=== PATIENT | female | born 1995 ===

== ENCOUNTER 2016-05-07 20:43 | Outpatient (CLI) | payer OTHER ==
[~2016-05-07] VITALS: Ht 152.4 cm; Wt 72.7 kg
[2016-05-07] MEDS ORDERED: PRENATAL MVI (21:23)
[2016-05-07 21:25] VITALS: BP 122/71; PULSE 101; TEMP 98.1
== END 2016-05-07 22:07 | disposition home or self-care (01) ==
LOC: LDRO 20:43
DX: O21.0 Mild hyperemesis gravidarum (principal); O26.893 Other specified pregnancy related conditions, third trimester; R19.7 Diarrhea, unspecified; Z3A.39 39 weeks gestation of pregnancy

== ENCOUNTER 2016-05-19 22:01 | Outpatient (CLI) | payer OTHER ==
[~2016-05-19] VITALS: Ht 152.4 cm; Wt 76.4 kg
[~2016-05-19 22:01] MED LIST: PRENATAL MVI
[2016-05-19 22:25] VITALS: BP 135/90; PULSE 99; TEMP 97.9
[2016-05-19 22:30] VITALS: BP 129/76; PULSE 95
[2016-05-19 22:45] VITALS: BP 127/81; PULSE 91
[2016-05-19 23:00] VITALS: BP 128/76; PULSE 93
[2016-05-19 23:15] VITALS: BP 130/69; PULSE 94
[2016-05-20] MEDS ORDERED: MOTRIN 800800 MG/TAB PO (08:58)
[2016-05-20] MEDS ORDERED: PERCOCET 325 MG1 TA2 PO (08:58)
== END 2016-05-19 23:40 | disposition home or self-care (01) ==
LOC: LDRO 22:01
DX: O47.1 False labor at or after 37 completed weeks of gestation (principal); Z3A.41 41 weeks gestation of pregnancy

== ENCOUNTER 2016-05-20 03:14 | Inpatient (IN) | payer OTHER ==
[~2016-05-20] VITALS: Ht 152.4 cm; Wt 78.6 kg
[2016-05-20] VITALS (58 sets, daily range): BP systolic 107–163; BP diastolic 56–93; PULSE 67–120; TEMP 97.6–99
[2016-05-20 05:29] LABS: BASO # 0.1 (0.0-0.2); BASO % 0.3 % (0.0-2.0); EOS # 0.1 (0.0-0.7); EOS % 0.4 % (0-4.0); GRAN # 10.5 (1.4-6.5); GRAN % 66.7 % (42.2-75.2); LYMPH # 3.9 (1.2-3.4); LYMPH % 24.7 % (20.0-51.0); MEAN CELL VOLUME 83 fl (80.0-100.0); MEAN CORPUSCULAR HGB CONC 34 g/dl (33.0-37.0); MEAN PLATELET VOLUME 12.4 fl (7.4-10.4); MONO # 1.1 (0.1-0.6); MONO % 7.3 % (1.7-9.3); PLATELET COUNT 326 K/mm3 (130-400); RED BLOOD COUNT 3.68 M/mm3 (4.10-5.30); REDCELL DISTRIBUTION WIDTH-CV 14.6 % (11.5-14.5); WHITE BLOOD COUNT 15.7 K/mm3 (4.8-10.8)
[2016-05-20 05:37] LABS: HEMATOCRIT 30.6 % (37.0-47.0); HEMOGLOBIN 10.3 g/dl (12.5-16.0); MEAN CORPUSCULAR HEMOGLOBIN 28 pg (27.0-31.0)
[2016-05-20] MEDS ORDERED: PERCOCET 325 MG1 TA2 PO (08:58)
[2016-05-20] MEDS ORDERED: MOTRIN 800800 MG/TAB PO (08:58)
[2016-05-21 04:00] VITALS: BP 115/56; PULSE 91; TEMP 97.6
[2016-05-21 06:40] LABS: HEMATOCRIT 22.3 % (37.0-47.0); HEMOGLOBIN 7.3 g/dl (12.5-16.0)
[2016-05-21 07:02] VITALS: BP 114/66; PULSE 89; TEMP 97.7
[2016-05-21 16:35] VITALS: BP 144/63; PULSE 97; TEMP 97.8
[2016-05-21 20:30] VITALS: BP 128/72; PULSE 95; TEMP 98.4
[2016-05-22 07:08] VITALS: BP 124/77; PULSE 99; TEMP 97.8
[2016-05-22 07:44] LABS: HEMATOCRIT 22.6 % (37.0-47.0); HEMOGLOBIN 7.4 g/dl (12.5-16.0)
== END 2016-05-22 15:30 | disposition home or self-care (01) | DRG 765 ==
LOC: LDRO 03:14 → LDR 03:44 → OB 03:44
PROVIDERS: Obstetrics & Gynecology
PROC: 10D00Z1 Extraction of Products of Conception, Low, Open Approach (ICD-10-PCS; principal; 2016-05-20)
DX: O48.0 Post-term pregnancy (principal); D62 Acute posthemorrhagic anemia; O98.312 Other infections with a predominantly sexual mode of transmission complicating pregnancy, second trimester; O62.0 Primary inadequate contractions; O99.02 Anemia complicating childbirth; A56.02 Chlamydial vulvovaginitis; O99.824 Streptococcus B carrier state complicating childbirth; O69.81X0 Labor and delivery complicated by cord around neck, without compression, not applicable or unspecified; Z3A.41 41 weeks gestation of pregnancy; Z37.0 Single live birth
CPT/HCPCS: J0690; J1885; J2270; J2370; J2400; J2405; J2540; J2590; J7120